=== PATIENT | male | born 1995 | race Caucasian/White ===

== ENCOUNTER 2023-11-23 16:52 | Emergency (ER) | payer OTHER, SELFPAY ==
--- NOTE | 2023-11-23 17:02 | ED_ITS ---
HPI - Skin/Abscess/Foreign Bdy General Chief complaint: Skin/Abscess/Foreign Body Stated complaint: Infection in finger - went to sunday Time Seen by Provider: 11/23/23 17:40 Source: patient, RN notes reviewed and old records reviewed Mode of arrival: ambulatory History of Present Illness HPI narrative: 28-year-old male with a past medical history of paronychia s/p I&D at urgent care 3 days ago, started on doxycycline, presenting to the ED complaining of continued right 3rd digit swelling & pain. Reports compliance with previously prescribed antibiotics. Admits tried to open himself at home yesterday. Also reports chills, myalgias, and rhinorrhea. Denies fever, abdominal pain, nausea/vomiting, diarrhea Related Data Previous Rx's Medication Instructions Recorded cephalexin 500 mg capsule 500 mg PO QID 7 days #28 caps 11/23/23 Allergies Allergy/AdvReac Type Severity Reaction Status Date / Time No Known Allergies Allergy Unverified 07/15/20 19:15 [No Known Allergies*] Review of Systems Review of Systems: Constitutional: No Fever, +Chills, +fatigue ENT/Mouth: No Ear Pain, No Nasal Congestion,No sore throat, No Rhinorrhea, No Swallowing Difficulty Cardiovascular: No Chest Pain, No SOB Respiratory: No Cough Gastrointestinal: No Nausea, No Vomiting, No Diarrhea, No Constipation, No Abdominal pain Musculoskeletal: + joint pain, No Myalgias, + Joint Swelling Skin: No Skin Lesions, No rash Neuro: No Weakness, No Numbness, No Paresthesias Yes all other systems are reviewed and are negative Constitutional: Constitutional: Reports as per [facility] Past Medical History Attestation statement: The following information was validated with the patient. Source: old records reviewed Social History Social History Advance Directives: No Advance Directives Information Provided: No Physical Exam Vital Signs: Vital Signs: Last Vital Signs Temp 98 F 11/23/23 17:03 Pulse 93 11/23/23 17:03 Resp 16 11/23/23 17:03 BP 149/79 H 11/23/23 17:03 Pulse Ox 98 11/23/23 17:03 O2 Del Method Room Air 11/23/23 17:03 BMI result Body Mass Index 21.6 Const: General: cooperative, healthy appearing and no acute distress Orientation/consciousness: patient oriented x3 Limitations: no limitations HEENT: Head: Yes normal to inspection and Yes atraumatic Ears: hearing grossly normal bilaterally General nose exam: Normal external nose present Face and sinus: Yes normal facial exam Eyes: General: appearance normal, both eyes and all related structures EOM: EOMs intact bilaterally Neck: Neck: Yes normal visual inspection and Yes no meningeal signs Resp: Effort & Inspection: normal respiratory effort and no respiratory distress Cardio: Rate: regular rate Heart sounds: S1 normal heart sound present and S2 normal heart sound present Skin: Rashes: no rashes Neuro: General: patient oriented x3, tone normal and no meningeal signs Cranial nerves: Yes CN's II-XII intact bilaterally Gait exam (Neuro): Normal gait present Extrem: Other: + paronychia noted to distal right 3rd d igit with erythema & fluctuance. Tender to palpation for full range of motion intact. No streaking/crepitus Course Course Course Narrative: This is an RME: Additional HPI, ROS, PE not included below will be deferred to primary provider. Patient is a 28-year-old male who presents emergency department for evaluation of infection to the distal tip of the right 3rd finge r, seen at urgent care 3 days ago started on doxycycline. -1900--ED care transferred to [facility] pending viral testing anticipated discharge Medical Decision Making Medical Decision Making [facility] Narrative: 28-year-old male with a past medical history of paronychia s/p I&D at urgent care 3 days ago, started on doxycycline, presenting to the ED complaining of continued right 3rd digit swelling & pain. On exam vital signs stable, NAD, nontoxic appearing, physical exam as noted above with recurrent paronychia to right 3rd digit. Patient has been on 3 days of doxycycline, not considered failed outpatient treatment. Will repeat I&D and test for COVID/flu. Low suspicion for osteomyelitis, deeper infection or felon Plan: I & D, COVID/flu testing Please refer to course for remaining clinical decision making, interpretation of labs/imaging results, and discussions with consultants and/or family members. Differential Diagnosis Differential Diagnoses: The differential diagnosis associated with the presentation includes As above Lab Data [facility] Lab Attestation statement: I reviewed the patient's lab results. External Record Review External record reviewed: Inpatient record, Office record, Outpatient record, Prior outpatient labs, Prior outpatient radiology, Primary care record and Outside ED record Tests considered The following testing was considered but not selected: As above Prescription Management I considered prescription management with: Pain Medication and Antibiotic Procedures Abscess I/D Site: hand Side (if applicable): right Technique: needle aspiration and incised with blade Packing used?: none Discharge Plan Discharge Clinical Impression: Paronychia of finger Patient Disposition: Home, Self-Care Instructions: Paronychia (ED), Cellulitis (DC) Additional Instructions: Please continue taking previously prescribed doxycycline. In addition start taking Keflex PERFORM WARM COMPRESSES SOAKS AT HOME AT LEAST 4 TIMES A DAY If area begins to recollect, redness or swelling is spreading/if streaking, fever chills return to the emergency department You should be re-evaluated in 2 days Prescriptions: New cephalexin 500 mg capsule 500 mg PO QID 7 Days Qty: 28 0RF Referrals: Physician,None [Primary Care Provider] - 2 days (For re-evaluation)
[2023-11-23 17:03] VITALS: BP 149/79; PULSE 93; RESP 16; TEMP 36.6; O2SAT 98; BMI 21.6
[2023-11-23 19:20] LABS: COVID-19 Test Negative (Negative); IDNOW Serial# 08D9AD1C; IDNOW Serial# 152EDE1D; Influenza A Positive (Negative); Influenza B2 Negative (Negative)
== END 2023-11-23 19:52 | disposition home or self-care (01) ==
PROVIDERS: Physician Assistant; Emergency Provider Emergency Medicine Emergency Medical Services
DX: L03.011 Cellulitis of right finger (principal); J10.1 Influenza due to other identified influenza virus with other respiratory manifestations; Z11.52 Encounter for screening for COVID-19
CPT/HCPCS: 26010; 87502; 87635; 99282; 99283; 99284